=== PATIENT | male | born 2000 | race Caucasian/White ===

== ENCOUNTER 2020-02-19 09:33 | Inpatient (IN) ==
[2020-02-19 10:10] LABS: Amphetamine Screen,Urine Negative ng/mL (Cutoff=1000); Barbiturate Screen,Urine Negative ng/mL (Cutoff=200); Benzodiazepines Screen,Urine Negative ng/mL (Cutoff=200); Cannabinoid Screen,Urine Positive ng/mL (Cutoff = 50); Cocaine Screen,Urine Negative ng/mL (Cutoff= 300); Opiate Screen,Urine Negative ng/mL (Cutoff=300); Phencyclidine Screen,Urine Negative ng/mL (Cutoff=25)
[2020-02-19 10:13] LABS: Basophils # 0.1 K/mcL (0.0-0.2); Basophils % 0.7 %; Eosinophils % 0.5 %; Hemoglobin 16.2 g/dL (12.9-16.9); Immature Granulocytes % 0.2 % (0-4); Lymphocytes # 2.2 K/mcL (0.6-4.6); Lymphocytes % 24.7 %; Mean Corpuscular HGB Conc 31.8 g/dL (31.6-35.5); Mean Corpuscular Volume 91.4 fL (83.0-100.0); Mean Platelet Volume 9.9 fL (9.4-12.4); Monocytes # 0.8 K/mcL (0.0-1.3); Monocytes % 9.3 %; Neutrophils # 5.7 K/mcL (1.6-8.9); Platelet Count 285 K/mcL (140-400); Red Blood Count 5.58 M/mcL (4.19-5.50); Red Cell Distribution Width 13.5 % (11.5-14.5); Segmented Neutrophils % 64.6 %; White Blood Count 8.8 K/mcL (4.3-11.1)
[2020-02-19 10:32] LABS: Acetaminophen < 10 mcg/mL (10-20); Alanine Aminotransferase 64 Units/L (7-52); Albumin 4.7 g/dL (3.5-5.7); Albumin/Globulin Ratio 1.6 (1.1-2.2); Alkaline Phosphatase 83 Units/L (34-104); Aspartate Amino Transferase 26 Units/L (13-39); BUN/Creatinine Ratio 18 (6-26); Bilirubin,Direct 0.1 mg/dL (0.0-0.2); Bilirubin,Indirect 0.5 mg/dL (0.0-1.0); Bilirubin,Total 0.6 mg/dL (0.3-1.0); Blood Urea Nitrogen 15 mg/dL (6-20); Calcium 9.8 mg/dL (8.6-10.3); Carbon Dioxide 26 mEq/L (23-29); Chloride 104 mEq/L (98-107); Ethanol < 10 mg/dL (Less than 10); Glucose 100 mg/dL (70-105); Osmolality,Calculated 285 (280-300); Salicylate < 2.5 mg/dL (15.0-30.0); Sodium 137 mEq/L (136-145); Total Protein 7.7 g/dL (6.4-8.9); eGFR For African Americans > 60 (> 60); eGFR For Non-African Americans > 60 (> 60)
[2020-02-19] MEDS ORDERED: *HR* LORazepam 2 MG/ML VIAL IM PRN (11:23)
[2020-02-19] MEDS ORDERED: Haloperidol Lactate 5 MG/ML VIAL IM PRN (11:23)
[2020-02-19] MEDS ORDERED: haloperidoL 5 MG TABLET PO PRN (11:23)
[2020-02-19] MEDS ORDERED: MOM Conc 10 ML UD.LIQ PO PRN (11:23)
[2020-02-19] MEDS ORDERED: *HR* LORazepam 1 MG TABLET PO PRN (11:23)
[2020-02-19] MEDS ORDERED: Acetaminophen 325 MG TABLET PO PRN (11:23)
[2020-02-19] MEDS ORDERED: Mag Hydrox/Al Hydrox/Simeth 30 ML UDC PO PRN (11:23)
[2020-02-19] MEDS: BuPROPion XL (24 HR) 150 MG TABLET PO SCH (12:37)
[2020-02-19] MEDS: Nicotine 21 MG PATCH.TD24 TD SCH (14:50)
[2020-02-20] MEDS: hydrOXYzine pamoate 25 MG CAPSULE PO PRN ×3 (02:11→13:29)
[2020-02-20] MEDS: QUEtiapine Fumarate 25 MG TABLET PO PRN ×2 (02:11→20:16)
[2020-02-20] MEDS: Nicotine 21 MG PATCH.TD24 TD SCH (08:47)
[2020-02-20] MEDS: ARIPiprazole 5 MG TABLET PO SCH (08:48)
[2020-02-20] MEDS: BuPROPion XL (24 HR) 150 MG TABLET PO SCH (08:48)
[2020-02-21] MEDS: hydrOXYzine pamoate 25 MG CAPSULE PO PRN (04:37)
[2020-02-21] MEDS: Nicotine 21 MG PATCH.TD24 TD SCH (08:28)
[2020-02-21] MEDS: ARIPiprazole 5 MG TABLET PO SCH (08:28)
[2020-02-21] MEDS: BuPROPion XL (24 HR) 150 MG TABLET PO SCH (08:28)
[2020-02-21 10:14] VITALS: BP 138/82
== END 2020-02-21 12:20 | disposition home or self-care (01) | DRG 753 ==
LOC: EMEROOARM 09:33 → 1ANU 11:19
PROVIDERS: ADMIT Psychiatry & Neurology Psychiatry; ATTEND Psychiatry & Neurology Psychiatry

== ENCOUNTER 2020-02-22 00:19 | Inpatient (IN) ==
[2020-02-22 00:47] LABS: Basophils # 0.1 K/mcL (0.0-0.2); Basophils % 0.6 %; Eosinophils # 0.1 K/mcL (0.0-0.6); Eosinophils % 0.5 %; Hematocrit 51.5 % (37.5-50.1); Hemoglobin 16.9 g/dL (12.9-16.9); Immature Granulocytes % 0.3 % (0-4); Lymphocytes # 2.8 K/mcL (0.6-4.6); Lymphocytes % 21.4 %; Mean Corpuscular HGB Conc 32.8 g/dL (31.6-35.5); Mean Corpuscular Hemoglobin 29.5 pg (28.0-33.3); Mean Corpuscular Volume 89.9 fL (83.0-100.0); Mean Platelet Volume 9.6 fL (9.4-12.4); Monocytes # 1.1 K/mcL (0.0-1.3); Monocytes % 8.6 %; Neutrophils # 9.1 K/mcL (1.6-8.9); Platelet Count 302 K/mcL (140-400); Red Blood Count 5.73 M/mcL (4.19-5.50); Red Cell Distribution Width 13.4 % (11.5-14.5); Segmented Neutrophils % 68.6 %
[2020-02-22 00:48] LABS: White Blood Count 13.2 K/mcL (4.3-11.1)
[2020-02-22 01:01] LABS: Amphetamine Screen,Urine Negative ng/mL (Cutoff=1000); Barbiturate Screen,Urine Negative ng/mL (Cutoff=200); Benzodiazepines Screen,Urine Negative ng/mL (Cutoff=200); Bilirubin,Urine Small (Negative); Blood,Urine Negative (Negative); Cannabinoid Screen,Urine Positive ng/mL (Cutoff = 50); Clarity,Urine Clear (Clear); Cocaine Screen,Urine Negative ng/mL (Cutoff= 300); Color,Urine Dark Yellow (Yellow); Glucose,Urine (UA) Normal (Normal); Ketones,Urine Negative (Negative); Leukocyte Esterase,Urine Negative (Negative); Nitrite,Urine Negative (Negative); Opiate Screen,Urine Negative ng/mL (Cutoff=300); Phencyclidine Screen,Urine Negative ng/mL (Cutoff=25); Protein,Urine Trace mg/dL (Neg-Trace); Specific Gravity,Urine > 1.030 (1.010-1.025); Urobilinogen,Urine Normal (Normal)
[2020-02-22 01:10] LABS: Acetaminophen < 10 mcg/mL (10-20); BUN/Creatinine Ratio 13 (6-26); Blood Urea Nitrogen 14 mg/dL (6-20); Calcium 10.5 mg/dL (8.6-10.3); Carbon Dioxide 25 mEq/L (23-29); Chloride 100 mEq/L (98-107); Ethanol < 10 mg/dL (Less than 10); Glucose 106 mg/dL (70-105); Osmolality,Calculated 285 (280-300); Potassium 3.7 mEq/L (3.5-5.1); Salicylate < 2.5 mg/dL (15.0-30.0); Sodium 137 mEq/L (136-145); eGFR For African Americans > 60 (> 60); eGFR For Non-African Americans > 60 (> 60)
[2020-02-22] MEDS ORDERED: haloperidoL 5 MG TABLET PO PRN (03:30)
[2020-02-22] MEDS ORDERED: MOM Conc 10 ML UD.LIQ PO PRN (03:30)
[2020-02-22] MEDS ORDERED: Ibuprofen 400 MG TABLET PO PRN (03:30)
[2020-02-22] MEDS ORDERED: traZODone 50 MG TABLET PO PRN (03:30)
[2020-02-22] MEDS ORDERED: Haloperidol Lactate 5 MG/ML VIAL IM PRN (03:30)
[2020-02-22] MEDS ORDERED: *HR* LORazepam 2 MG/ML VIAL IM PRN (03:30)
[2020-02-22] MEDS ORDERED: *HR* LORazepam 1 MG TABLET PO PRN (03:30)
[2020-02-22] MEDS ORDERED: QUEtiapine Fumarate 25 MG TABLET PO PRN (03:41)
[2020-02-22] MEDS: Nicotine 21 MG PATCH.TD24 TD SCH (10:11)
[2020-02-22] MEDS: ARIPiprazole 10 MG TABLET PO SCH (10:12)
[2020-02-22] MEDS: BuPROPion XL (24 HR) 150 MG TABLET PO SCH (10:12)
[2020-02-22] MEDS: Acetaminophen 325 MG TABLET PO PRN (16:42)
[2020-02-23] MEDS: ARIPiprazole 10 MG TABLET PO SCH (09:36)
[2020-02-23] MEDS: BuPROPion XL (24 HR) 150 MG TABLET PO SCH (09:36)
[2020-02-23] MEDS: Nicotine 21 MG PATCH.TD24 TD SCH (09:37)
[2020-02-23] MEDS: QUEtiapine Fumarate 100 MG TABLET PO SCH (21:33)
[2020-02-24] MEDS: ARIPiprazole 10 MG TABLET PO SCH (09:20)
[2020-02-24] MEDS: Nicotine 21 MG PATCH.TD24 TD SCH (09:20)
[2020-02-24] MEDS: BuPROPion XL (24 HR) 150 MG TABLET PO SCH (09:20)
[2020-02-24] MEDS: QUEtiapine Fumarate 100 MG TABLET PO SCH (20:46)
[2020-02-24] MEDS: hydrOXYzine pamoate 25 MG CAPSULE PO PRN (20:46)
[2020-02-24] MEDS: Acetaminophen 325 MG TABLET PO PRN (20:47)
[2020-02-25] MEDS: ARIPiprazole 10 MG TABLET PO SCH (08:35)
[2020-02-25] MEDS: BuPROPion XL (24 HR) 150 MG TABLET PO SCH (08:35)
[2020-02-25] MEDS: Nicotine 21 MG PATCH.TD24 TD SCH (08:36)
[2020-02-25] MEDS: Ammonium Lactate 30 APPL/225 GM BOTTLE TP SCH ×2 (12:07→20:41)
[2020-02-25] MEDS: traZODone 50 MG TABLET PO SCH (20:41)
[2020-02-25] MEDS ORDERED: traZODone 50 MG TABLET PO SCH (21:00)
[2020-02-26] MEDS: ARIPiprazole 10 MG TABLET PO SCH (08:37)
[2020-02-26] MEDS: BuPROPion XL (24 HR) 150 MG TABLET PO SCH (08:38)
[2020-02-26] MEDS: Nicotine 21 MG PATCH.TD24 TD SCH (08:38)
[2020-02-26] MEDS: Ammonium Lactate 30 APPL/225 GM BOTTLE TP SCH ×2 (08:39→20:24)
[2020-02-26] MEDS ORDERED: BuPROPion XL (24 HR) 150 MG TABLET PO STA (09:05)
[2020-02-26] MEDS: hydrOXYzine pamoate 25 MG CAPSULE PO PRN (20:22)
[2020-02-26] MEDS: Acetaminophen 325 MG TABLET PO PRN (20:22)
[2020-02-26] MEDS: traZODone 50 MG TABLET PO SCH (20:23)
[2020-02-27] MEDS: ARIPiprazole 10 MG TABLET PO SCH (08:41)
[2020-02-27] MEDS: BuPROPion XL (24 HR) 150 MG TABLET PO SCH (08:42)
[2020-02-27] MEDS: Ammonium Lactate 30 APPL/225 GM BOTTLE TP SCH ×2 (08:43→20:00)
[2020-02-27] MEDS: Nicotine 21 MG PATCH.TD24 TD SCH (08:43)
[2020-02-27] MEDS ORDERED: ARIPiprazole 5 MG TABLET PO SCH (09:15)
[2020-02-27] MEDS: Acetaminophen 325 MG TABLET PO PRN (13:52)
[2020-02-27] MEDS: traZODone 50 MG TABLET PO SCH (20:00)
[2020-02-27] MEDS: hydrOXYzine pamoate 25 MG CAPSULE PO PRN (20:00)
[2020-02-28] MEDS: BuPROPion XL (24 HR) 150 MG TABLET PO SCH (08:19)
[2020-02-28] MEDS: Nicotine 21 MG PATCH.TD24 TD SCH (08:19)
[2020-02-28] MEDS: Ammonium Lactate 30 APPL/225 GM BOTTLE TP SCH (08:21)
[2020-02-28 08:32] VITALS: BP 114/76
[2020-02-28] MEDS ORDERED: ARIPiprazole 5 MG TABLET PO SCH (09:00)
== END 2020-02-28 11:00 | disposition home or self-care (01) | DRG 753 ==
LOC: EMEROOARM 00:19 → 1ANU 00:19 → OBSVTOIN 02:49 → SUATTDRO 02:49 → 1ANU 04:42
PROVIDERS: ADMIT Psychiatry & Neurology Psychiatry; ATTEND Psychiatry & Neurology Psychiatry

== ENCOUNTER 2020-05-27 16:16 | Observation (INO) ==
[2020-05-27 16:49] LABS: Bilirubin,Urine Negative (Negative); Blood,Urine Negative (Negative); Clarity,Urine Clear (Clear); Color,Urine Yellow (Yellow); Glucose,Urine (UA) Normal (Normal); Ketones,Urine Negative (Negative); Leukocyte Esterase,Urine Negative (Negative); Nitrite,Urine Negative (Negative); Protein,Urine Trace mg/dL (Neg-Trace); Specific Gravity,Urine 1.028 (1.010-1.025); Urobilinogen,Urine Normal (Normal)
[2020-05-27 17:05] LABS: Basophils # 0.1 K/mcL (0.0-0.2); Basophils % 0.8 %; Eosinophils # 0.2 K/mcL (0.0-0.6); Eosinophils % 1.4 %; Hemoglobin 16.2 g/dL (12.9-16.9); Immature Granulocytes % 0.3 % (0-4); Lymphocytes # 2.5 K/mcL (0.6-4.6); Lymphocytes % 23.2 %; Mean Corpuscular HGB Conc 33.8 g/dL (31.6-35.5); Mean Corpuscular Hemoglobin 30.7 pg (28.0-33.3); Mean Corpuscular Volume 90.9 fL (83.0-100.0); Mean Platelet Volume 9.8 fL (9.4-12.4); Monocytes # 0.8 K/mcL (0.0-1.3); Monocytes % 7.8 %; Neutrophils # 7.1 K/mcL (1.6-8.9); Platelet Count 265 K/mcL (140-400); Red Blood Count 5.28 M/mcL (4.19-5.50); Red Cell Distribution Width 13.1 % (11.5-14.5); Segmented Neutrophils % 66.5 %; White Blood Count 10.6 K/mcL (4.3-11.1)
[2020-05-27 17:07] LABS: Acetaminophen < 10 mcg/mL (10-20); BUN/Creatinine Ratio 13 (6-26); Blood Urea Nitrogen 13 mg/dL (6-20); Calcium 9.6 mg/dL (8.6-10.3); Carbon Dioxide 28 mEq/L (23-29); Chloride 99 mEq/L (98-107); Ethanol < 10 mg/dL (Less than 10); Glucose 98 mg/dL (70-105); Osmolality,Calculated 284 (280-300); Potassium 4.2 mEq/L (3.5-5.1); Salicylate < 2.5 mg/dL (15.0-30.0); Sodium 137 mEq/L (136-145); eGFR For African Americans > 60 (> 60); eGFR For Non-African Americans > 60 (> 60)
[2020-05-27 17:10] LABS: Amphetamine Screen,Urine Positive ng/mL (Cutoff=1000); Barbiturate Screen,Urine Negative ng/mL (Cutoff=200); Benzodiazepines Screen,Urine Negative ng/mL (Cutoff=200); Cannabinoid Screen,Urine Positive ng/mL (Cutoff = 50); Cocaine Screen,Urine Negative ng/mL (Cutoff= 300); Opiate Screen,Urine Negative ng/mL (Cutoff=300); Phencyclidine Screen,Urine Negative ng/mL (Cutoff=25)
[2020-05-27 18:34] LABS: Estimated Average Glucose 105 mg/dl
[2020-05-27] MEDS ORDERED: MOM Conc 10 ML UD.LIQ PO PRN (18:36)
[2020-05-27] MEDS ORDERED: haloperidoL 5 MG TABLET PO PRN (18:36)
[2020-05-27] MEDS ORDERED: hydrOXYzine pamoate 25 MG CAPSULE PO PRN (18:36)
[2020-05-27] MEDS ORDERED: Haloperidol Lactate 5 MG/ML VIAL IM PRN (18:36)
[2020-05-27] MEDS ORDERED: Mag Hydrox/Al Hydrox/Simeth 30 ML UDC PO PRN (18:36)
[2020-05-27] MEDS ORDERED: *HR* LORazepam 1 MG TABLET PO PRN (18:36)
[2020-05-27] MEDS ORDERED: Acetaminophen 325 MG TABLET PO PRN (18:36)
[2020-05-27] MEDS ORDERED: *HR* LORazepam 2 MG/ML VIAL IM PRN (18:36)
[2020-05-27] MEDS ORDERED: traZODone 50 MG TABLET PO PRN (18:41)
[2020-05-28 08:34] VITALS: BP 133/83
[2020-05-28] MEDS ORDERED: Nicotine 21 MG PATCH.TD24 TD SCH (09:00)
[2020-05-28] MEDS ORDERED: ARIPiprazole 5 MG TABLET PO SCH (09:00)
[2020-05-28] MEDS ORDERED: BuPROPion XL (24 HR) 150 MG TABLET PO SCH (09:00)
== END 2020-05-28 11:20 | disposition home or self-care (01) ==
LOC: EMEROOARM 16:16 → 1ANU 16:16
PROVIDERS: ADMIT Psychiatry & Neurology Psychiatry; ATTEND Psychiatry & Neurology Psychiatry